=== PATIENT | male | born 1995 | race Caucasian/White ===

== ENCOUNTER 2023-05-19 14:00 | Emergency (ER) | payer MEDICAID, OTHER ==
[~2023-05-19] VITALS: Ht 182.9 cm; Wt 104.3 kg
[2023-05-19 14:35] VITALS: BP 121/79; PULSE 85; RESP 18; TEMP 98.4; O2SAT 98
[2023-05-19] MEDS ORDERED: CIPR500T4 PO (16:08)
[2023-05-19] MEDS ORDERED: IBUP-2213 PO (16:09)
[2023-05-19] MEDS ORDERED: ACET-10509 PO (16:09)
[2023-05-19] MEDS: KETOROLAC 30 MG/ML VIAL IM ONE (17:03)
[2023-05-19 17:14] VITALS: BP 121/79; PULSE 85; RESP 18; TEMP 98.4; O2SAT 98
== END 2023-05-19 17:14 | disposition home or self-care (01) ==
LOC: MED 14:00
DX: S91.331A Puncture wound without foreign body, right foot, initial encounter (principal); J45.909 Unspecified asthma, uncomplicated; Z79.899 Other long term (current) drug therapy; Z79.1 Long term (current) use of non-steroidal anti-inflammatories (NSAID); Z79.2 Long term (current) use of antibiotics; W22.8XXA Striking against or struck by other objects, initial encounter; Y93.89 Activity, other specified; Y92.89 Other specified places as the place of occurrence of the external cause; Y99.8 Other external cause status
CPT/HCPCS: 73630; 90471; 90715; 96372; 99284; J1885

== ENCOUNTER 2023-06-24 02:00 | Emergency (ER) | payer OTHER ==
[~2023-06-24] VITALS: Ht 185.4 cm; Wt 104.3 kg
[~2023-06-24 02:00] MED LIST: ACET-10509 PO; CIPR500T4 PO; IBUP-2213 PO
[2023-06-24 02:35] VITALS: BP 135/88; PULSE 117; RESP 19; TEMP 98.8; O2SAT 97
[2023-06-24] MEDS ORDERED: ONDANSETRON 4 MG ODT PO ONE (06:25)
[2023-06-24] MEDS ORDERED: DIAZEPAM PFS 10 MG/2 ML SYR IVP ONE (06:25)
[2023-06-24] MEDS ORDERED: NACL 0.9% 1,000 ML IV ONE (06:25)
[2023-06-24 07:15] LABS: BASOPHILS % (AUTO) 0.4 % (0.0-2.0); HEMATOCRIT 42.5 % (36-52); LYMPHOCYTES # (AUTO) 0.7 K/uL (2.0-11.5); LYMPHOCYTES % (AUTO) 9.4 % (20.5-51.1); MEAN CORPUSCULAR HEMOGLOBIN 32 pg (27-31); MEAN CORPUSCULAR HGB CONC 35 g/dL (33-37); MEAN CORPUSCULAR VOLUME 91.3 fL (80-94); MONOCYTES % (AUTO) 12.9 % (1.7-9.3); NEUTROPHILS # (AUTO) 5.9 K/uL (1.8-7.7); NEUTROPHILS % (AUTO) 77.3 % (42.2-75.2); PLATELET COUNT (AUTO) 179 K/uL (140-450); RED BLOOD CELL COUNT(AUTO) 4.65 MIL/uL (4.20-6.10); RED CELL DISTRIBUTION WIDTH 14.1 % (11.6-13.7); WHITE BLOOD COUNT (AUTO) 7.6 K/uL (4.8-10.8)
[2023-06-24 07:36] LABS: ALANINE AMINOTRANSFERASE 51 U/L (12-78); ALKALINE PHOSPHATASE 96 U/L (50-136); ASPARTATE AMINOTRANSFERASE 74 U/L (15-37); BILIRUBIN,DIRECT 0.2 mg/dL (0.0-0.3); TOTAL BILIRUBIN 0.8 mg/dL (0.0-1.0)
[2023-06-24] MEDS ORDERED: chlordiazePOXIDE 25 MG CAP PO ONE (07:40)
[2023-06-24 08:21] LABS: ANION GAP 18.1 (8-16); CALCIUM 9.1 mg/dL (8.5-10.1); CARBON DIOXIDE 22.7 mmol/L (21-32); POTASSIUM 3.8 mmol/L (3.5-5.1)
[2023-06-24] MEDS ORDERED: CHLO-836 PO (09:29)
[2023-06-24 09:50] VITALS: BP 118/74; PULSE 108; RESP 19; TEMP 98.8; O2SAT 96
== END 2023-06-24 09:50 | disposition home or self-care (01) ==
LOC: MED 02:00
DX: F10.239 Alcohol dependence with withdrawal, unspecified (principal); R07.9 Chest pain, unspecified; E87.1 Hypo-osmolality and hyponatremia; R00.0 Tachycardia, unspecified; J45.909 Unspecified asthma, uncomplicated; Z79.899 Other long term (current) drug therapy; Z79.1 Long term (current) use of non-steroidal anti-inflammatories (NSAID); Z79.2 Long term (current) use of antibiotics; Y90.0 Blood alcohol level of less than 20 mg/100 ml
CPT/HCPCS: 36415; 71045; 80048; 80076; 84484; 85025; 96361; 96374; 99284; G0482; J3360; J7030; Q0092; Q0162; 93005